=== PATIENT | male | born 1950 | race Caucasian/White ===

== ENCOUNTER → 2017-03-16 | Outpatient (CLI) | payer MEDICARE, OTHER ==
--- NOTE | 2017-03-16 19:59 | RADIOLOGY REPORT PS360 ---
CHEST(2 VIEWS-NOT PORTABLE) Ordering physician: Milana Simons APRN Age: 67 years Male INDICATION: chest symptomsFEVER cough fever ONE YEAR NONSMOKER PROCEDURE: CHEST(2 VIEWS-NOT PORTABLE) FINDINGS: Prior chest film from 11/06/2016 There is additional technique accentuates markings particularly on the lateral view but considering technique I see no significant interval change. The extensor markings at the lower lobe on lateral view reflect technique as well as overlying structures Hyperexpansion most evident upper lung collins with flattened hemidiaphragm. These features are suggestive of COPD. Correlation required . Lungs clear with nothing definitely acute. No pneumothorax. No pleural effusion. Heart normal size. Normal pulmonary vascularity. Hilar and mediastinal structures appear satisfactory. Chest wall unremarkable. T-spine intact. IMPRESSION ----- . stable chest with nothing definitely acute. Mild Hyperexpansion suggestive of developing COPD
== END ==
LOC: RAD 10:52
DX: R50.9 Fever, unspecified (principal)

== ENCOUNTER → 2017-04-02 | Outpatient (CLI) | payer MEDICARE, OTHER ==
[2017-04-02 11:57] LABS: BUN 20 mg/dL (7-18)
[2017-04-02 11:59] LABS: GFR (ESTIMATED) 40 ML/MIN (>60)
[2017-04-03 14:40] LABS: C-Peptide 20.3 ng/mL (1.1-4.4)
[2017-04-03 18:41] LABS: Antinuclear Antibodies, IFA Negative (.)
== END ==
LOC: LAB 10:36
PROVIDERS: Nurse Practitioner
DX: R50.9 Fever, unspecified (principal); R53.83 Other fatigue; G89.29 Other chronic pain; J40 Bronchitis, not specified as acute or chronic; I10 Essential (primary) hypertension; A69.23 Arthritis due to Lyme disease

== ENCOUNTER → 2017-04-03 | Outpatient (CLI) | payer MEDICARE, OTHER ==
--- NOTE | 2017-04-03 16:35 | RADIOLOGY REPORT PS360 ---
CT CHEST W/O CONTRAST HISTORY: Shortness of air, bronchitis BRONCHITIS ORDERING PHYSICIAN: Milana Simons APRN PATIENT AGE: 67 years TECHNIQUE: Axial images are obtained without contrast. COMPARISON: None FINDINGS: No mediastinal or hilar mass or adenopathy. Normal heart size without evidence of pericardial effusion. Coronary artery calcifications are present. There is hyperinflation with attenuation of the peripheral pulmonary vessels and bronchial thickening consistent with obstructive chronic bronchitis. No lobar consolidation or collapse. No suspicious pulmonary nodules or effusions. Upper abdominal images demonstrates multiple hepatic isodense lesions the largest projecting off the lateral segment of the left hepatic lobe at 4.6 cm consistent with a cyst. 2 mm punctate calculus is present in the midpole region of the left kidney. Multiple small calcific densities are present in the tail the pancreas and may be related to chronic pancreatitis No acute bony anomalies. IMPRESSION: 1. The findings are consistent with obstructive chronic bronchitis. 2. Coronary artery disease. 3. Multiple hepatic cysts. 4. Left nephrolithiasis 5. Pancreatic calcifications suggesting chronic pancreatitis
== END ==
LOC: RAD 10:54
DX: R50.9 Fever, unspecified (principal); J40 Bronchitis, not specified as acute or chronic; R53.83 Other fatigue; I10 Essential (primary) hypertension; G89.29 Other chronic pain